=== PATIENT | male | born 1955 | race Caucasian/White ===

== ENCOUNTER 2016-10-20 08:05 | Inpatient (IN) | payer OTHER ==
[~2016-10-20] VITALS: Ht 182.9 cm; Wt 75.3 kg
[2016-10-20] VITALS (8 sets, daily range): BP systolic 133–157; BP diastolic 62–94
--- NOTE | ~2016-10-20 | HC ---
[facility] [place] [address] CONSULTATION Name: LAW PERRY Room #: 306-P [facility] IN M.R.#: [id number] Admission: 10/20/16 Attend Phys: Law Dorsey DO Discharge: Date of : 55 Report #: [id number] THIS REPORT FOR: //name// CC: FAM unknown Law Dorsey REASON FOR CONSULTATION: I was asked to evaluate concerning HIV infection and epistaxis. 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 He had been on antiretroviral therapy until the last 6 months where he lost his insurance and came off his treatment. He does have a history of recurring otitis media and many years ago had myringotomy tubes placed. Early this morning, he had acute onset of epistaxis. He also noticed some blood from his left ear. Minimal headache. No reported hypertension history. Does have a family history of such. He does smoke cigarettes. No fever, chills or sweats. No recent trauma. He has had no bleeding issues in the past. Admitted through the Emergency Room. Nasal packing was in place. He has remained hemodynamically stable. He has been seen by Otolaryngology who recommended continuation with his current treatment program. They desire to evaluate him further in the outpatient setting. ALLERGIES: None. MEDICATIONS: As noted on his MAR including the Augmentin, which was started today. PAST MEDICAL HISTORY: He has had epistaxis episodes previously. He has otherwise been healthy with no opportunistic infections. Recurring otitis media with myringotomy tubes. FAMILY HISTORY: Hypertension. SOCIAL HISTORY: No current partners. Moderate alcohol intake. Smoke cigarettes. Had been living in [place] prior to residence in [place]. REVIEW OF SYSTEMS: He has had no cough or sputum production. No chest pain. No nausea, vomiting, diarrhea, dysuria or frequency. PHYSICAL EXAMINATION: VITAL SIGNS: Afebrile, hemodynamically stable, was a bit tachycardic. HEENT: Remarkable for nasal packing and bloody drainage to the dressing. I did not have an otoscope available to evaluate his tympanic members. Mouth: Blood down the posterior oropharynx, otherwise unremarkable. No thrush or other lesions. NECK: Supple with no masses or adenopathy. LUNGS: Clear. [facility] [address] [place] [address] CONSULTATION Name: LAW PERRY Room #: 306-P [facility] IN M.R.#: [id number] Admission: 10/20/16 Attend Phys: Law Dorsey DO Discharge: Date of : 55 Report #: [id number] HEART: Regular without murmur. ABDOMEN: Soft, nontender. No hepatosplenomegaly or mass. EXTREMITIES: Unremarkable other than appeared to have some clubbing to his fingers. LABORATORY STUDIES: Hemoglobin 16.5; platelet count 186,000; WBC 6.1 and differential unremarkable. Creatinine 1.1, sodium 135, potassium 4.2, bicarbonate 27. INR 1. Follow up hemoglobin now 13.3. IMPRESSION: A 60-year-old with uncontrolled human immunodeficiency virus. He did not know his current status, where he has been off therapy for approximately 6 months. Now with epistaxis with a history of recurring otitis. Would question whether we are dealing with sinusitis issue or other mucosal problem. Would recommend CT scan of the head and sinuses. Chest x-ray. Follow up hemoglobin and CD4 count. Continue antibiotic coverage with Augmentin. The patient needs to follow up with [facility] Clinic upon discharge in order to get his treatment restarted. By: [id number] Russ Weeks MD /nt
[2016-10-20 08:40] LABS: ABSOLUTE NEUTROPHILS 3.4 thou/uL (1.4-8.2); BASOPHILS 0.4 % (0.0-2.0); EOSINOPHILS 1.9 % (0.0-3.0); HEMATOCRIT 47.7 % (42.0-52.0); HEMOGLOBIN 16.5 gm/dL (14.0-18.0); LYMPHOCYTES 33.9 % (24.0-44.0); MCH 30.5 pg (26.0-34.0); MCHC 34.5 g/dL (28.0-37.0); MCV 88.2 fL (80.0-100.0); MONOCYTES 8.5 % (1.0-8.0); PLATELET COUNT 186 thou/uL (150-400); POLYS 55.3 % (36.0-66.0); RBC 5.41 mil/uL (4.50-6.00); RDW 14.5 % (10.5-14.5); WBC 6.1 thou/uL (4.0-11.0)
[2016-10-20 08:44] LABS: MANUAL DIFF NO
[2016-10-20 08:54] LABS: CALCIUM 9.5 mg/dL (8.5-10.1); CREATININE 1.1 mg/dL (0.7-1.3); POTASSIUM 4.2 mmol/L (3.5-5.1)
[2016-10-20 09:04] LABS: PROTIME 10.5 Seconds (9.3-11.4)
[2016-10-20 16:04] LABS: HEMATOCRIT 41.5 % (42.0-52.0)
[2016-10-20 16:06] LABS: HEMOGLOBIN 14.3 gm/dL (14.0-18.0)
[2016-10-21 04:00] VITALS: BP 118/69
[2016-10-21 04:06] LABS: BASOPHILS 0.5 % (0.0-2.0); EOSINOPHILS 0.2 % (0.0-3.0); HEMATOCRIT 36.8 % (42.0-52.0); HEMOGLOBIN 12.5 gm/dL (14.0-18.0); LYMPHOCYTES 32.1 % (24.0-44.0); MCH 29.9 pg (26.0-34.0); MCHC 34.1 g/dL (28.0-37.0); MCV 87.9 fL (80.0-100.0); MONOCYTES 7.1 % (1.0-8.0); PLATELET COUNT 188 thou/uL (150-400); POLYS 60.1 % (36.0-66.0); RBC 4.19 mil/uL (4.50-6.00); RDW 14.3 % (10.5-14.5)
[2016-10-21 04:11] LABS: CALCIUM 8.7 mg/dL (8.5-10.1); POTASSIUM 3.6 mmol/L (3.5-5.1)
[2016-10-21 04:13] LABS: MANUAL DIFF NO
[2016-10-21 08:28] VITALS: BP 115/66
[2016-10-21] MEDS ORDERED: AUGMENTIN 875-1 EACH PO (09:36)
[2016-10-21 10:33] VITALS: BP 115/66
[2016-10-22 14:13] LABS: CD3 % 90.1 % (57.5-86.2); CD4 % 6.4 % (30.8-58.5); CD4:CD8 0.08 (0.92-3.72); CD8 % 83.2 % (12.0-35.5)
== END 2016-10-21 12:22 | disposition home or self-care (01) | DRG 151 ==
LOC: ER 08:05 → EROBS 10:54 → 3N 11:30 → ENTRNSPT 10-21 12:16 → 3N 10-21 12:22
PROVIDERS: Emergency Medicine; Family Medicine; Specialist
PROC: 2Y41X5Z Packing of Nasal Region using Packing Material (ICD-10-PCS; principal; 2016-10-20)
DX: R04.0 Epistaxis (principal); F17.210 Nicotine dependence, cigarettes, uncomplicated; Z82.49 Family history of ischemic heart disease and other diseases of the circulatory system
CPT/HCPCS: 10094